=== PATIENT | male | born 1970 | race Caucasian/White ===

== ENCOUNTER 2021-11-11 06:04 | Day surgery (SDC) | payer BC ==
[2021-11-09 10:44] VITALS: BMI 38.0
[2021-11-11] MEDS ORDERED: Lidocaine 1% MPF 2 ML VIAL ONE (06:17)
[2021-11-11] MEDS ORDERED: PROPOFOL 60 ML ONE (07:12)
[2021-11-11] MEDS ORDERED: Lidocaine 1% PF 5 ML VIAL ONE (07:12)
[2021-11-11] MEDS ORDERED: Glycopyrrolate 0.2 MG/ML 5 ML SYRINGE ONE (07:41)
== END 2021-11-11 09:03 | disposition home or self-care (01) ==
LOC: CSHSDC 06:04
PROVIDERS: ATTEND Internal Medicine Gastroenterology
PROC: 0DB68ZZ Excision of Stomach, Via Natural or Artificial Opening Endoscopic (ICD-10-PCS; principal; 2021-11-11)
DX: R13.10 Dysphagia, unspecified (principal); K31.9 Disease of stomach and duodenum, unspecified; K44.9 Diaphragmatic hernia without obstruction or gangrene; K25.9 Gastric ulcer, unspecified as acute or chronic, without hemorrhage or perforation; I10 Essential (primary) hypertension; F32.A Depression, unspecified; E66.9 Obesity, unspecified
CPT/HCPCS: 88305; J2704